=== PATIENT | male | born 1945 | race Caucasian/White ===

== ENCOUNTER → 2023-11-14 13:47 | Outpatient (BNVA) | payer MEDICARE, MEDICAID, SELFPAY | PROVIDERS: Family Provider Nurse Practitioner Family; PCP Urology; Visit Provider Nurse Practitioner Family | DX: L28.0 Lichen simplex chronicus (principal); D22.62 Melanocytic nevi of left upper limb, including shoulder; Q63.8 Other specified congenital malformations of kidney; L81.4 Other melanin hyperpigmentation | CPT/HCPCS: 99204 ==

== ENCOUNTER → 2023-12-12 14:05 | Outpatient (BNVA) | payer MEDICARE, MEDICAID, SELFPAY | PROVIDERS: Family Provider Nurse Practitioner Family; PCP Urology; Visit Provider Nurse Practitioner Family | DX: L28.0 Lichen simplex chronicus (principal) | CPT/HCPCS: 99213 ==

== ENCOUNTER → 2024-03-11 10:51 | Outpatient (BNVA) | payer MEDICARE, MEDICAID, SELFPAY | PROVIDERS: Family Provider Nurse Practitioner Family; PCP Urology; Visit Provider Nurse Practitioner Family | DX: L28.0 Lichen simplex chronicus (principal); L58.0 Acute radiodermatitis; L57.8 Other skin changes due to chronic exposure to nonionizing radiation | CPT/HCPCS: 99213 ==

== ENCOUNTER → 2024-04-10 09:44 | Outpatient (BNVA) | payer MEDICARE, MEDICAID, SELFPAY | PROVIDERS: Family Provider Nurse Practitioner Family; PCP Urology; Visit Provider Emergency Medicine | DX: M79.671 Pain in right foot (principal) | CPT/HCPCS: 73630 ==

== ENCOUNTER → 2024-09-14 09:33 | Outpatient (BNVA) | payer MEDICARE, MEDICAID, SELFPAY | PROVIDERS: Family Provider Nurse Practitioner Family; PCP Urology; Visit Provider Nurse Practitioner Family | DX: L28.0 Lichen simplex chronicus (principal); L81.4 Other melanin hyperpigmentation; L57.8 Other skin changes due to chronic exposure to nonionizing radiation; L21.8 Other seborrheic dermatitis | CPT/HCPCS: 99214 ==